=== PATIENT | male | born 1985 | race Caucasian/White ===

== ENCOUNTER 2016-10-02 15:30 | Emergency (ER) | payer BC ==
[~2016-10-02] VITALS: Ht 177.8 cm; Wt 102.0 kg
[2016-10-02 15:33] VITALS: TEMP 36.6; Ht 177.8 cm; Wt 102.0 kg
[2016-10-02] MEDS ORDERED: SULFAMETHOXAZOLE/TRIMETHOPRIM DS 800/160MG TAB PO STA (15:54)
--- NOTE | 2016-10-02 15:59 | EMERGENCY ROOM VISIT NOTE ---
History Report prepared by Charisibcaro: Cecilia Gillette Under the Supervision of: Dr. Opal Del Angel D.O. First contact with patient: 15:38 Chief Complaint: INFECTION Stated Complaint: LEFT KNEE INFECTED Nursing Triage Summary: pt to the ED with c/o went to PMD referred here for left knee red swelling over the past 5 days no injury History of Present Illness The patient is a 31 year old male who presents to the Emergency Room with complaints of persistent an infection on his left knee that became 4 days ago. He noticed an ingrown hair on his left knee on Tuesday and progressively got more painful and red. The patient states that site is sore too touch and hurt when his leg is bent. The patient denies any no fevers, chills, nausea, or vomiting. He also denies any other rashes as well as denies any history of MRSA. 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 Source of History: patient Onset: 4 days ago Position: knee (left) Timing: other (persistent) Associated Symptoms: No fevers, No chills, No nausea, No vomiting Review of Systems See HPI for pertinent positives & negatives. A total of 10 systems reviewed and were otherwise negative. Past Medical & Surgical Medical Problems: (1) Head injury Family History no pertinent family history stated. Social History Smoking Status: Never Smoker Marital Status: Housing Status: lives with family Occupation Status: employed Current/Historical Medications Scheduled Cephalexin Monohydrate (Keflex), 500 MG PO QID Sulfa/Trimethoprim (Bactrim Ds 800MG/160MG), 1 TAB PO BID Allergies Coded Allergies: No Known Allergies (Unverified , 03/08/14) Physical Exam Vital Signs Date Time Temp Pulse Resp B/P (MAP) Pulse Ox O2 Delivery O2 Flow Rate FiO2 10/02/16 16:15 81 16 130/77 99 10/02/16 15:33 36.6 78 16 136/84 99 Physical Exam GENERAL: alert, well appearing, well nourished, no distress, non-toxic EYE EXAM: normal conjunctiva, PERRL and EOM's grossly intact OROPHARYNX: no exudate, no erythema, lips, buccal mucosa, and tongue normal and mucous membranes are moist NECK: supple, no nuchal rigidity, no adenopathy, non-tender LUNGS: Clear to auscultation. Normal chest wall mechanics HEART: no murmurs, S1 normal and S2 normal ABDOMEN: abdomen soft, non-tender, normo-active bowel sounds, no masses, no rebound or guarding. BACK: Back is symmetrical on inspection and there is no deformity, no midline tenderness, no CVA tenderness. SKIN: no rashes and no bruising. Small scab on left knee surrounded by erythema and warm. UPPER EXTREMITIES: upper extremities are grossly normal. LOWER EXTREMITIES: No pitting edema. . ROM normal. no joint effusion NEURO EXAM: Normal sensorium, cranial nerves II-XII [grossly] intact, normal speech, no [gross] weakness of arms, no [gross] weakness of legs. [No drift. Finger to nose intact. Gross sensation intact.] Medical Decision & Procedures Medications Administered Medications (Trade) Dose Ordered Sig/Rosy Route Start Time Stop Time Status Last Admin Dose Admin Cephalexin Monohydrate (Keflex Cap) 500 mg NOW ONCE PO 10/02/16 16:00 10/02/16 16:01 DC 10/02/16 16:05 500 MG Trimethoprim/ Sulfamethoxazole (Septra Ds 800/ 160MG Tab) 1 tab NOW STAT PO 10/02/16 15:54 10/02/16 15:56 DC 10/02/16 16:05 1 TAB ED Course 1547: The patient was evaluated in room A10. A complete history and physical exam was performed. 1554: Trimethoprim/Sulfamethoxazole 1 tab PO. 1600:Keflex Cap 500 mg PO. 1630: Upon reevaluation, the patient is feeling better. I discussed the findings and the treatment plan with the patient. He verbalizes agreement and understanding. The patient was discharged home. Medical Decision Differential diagnosis: Etiologies such as cellulitis, abscess, MRSA infection, DVT, necrotizing fasciitis, dermatitis, drug eruption, as well as others were entertained.. Patient most likely with cellulitis, doubt septic arthritis given no joint effusion and full range of motion without pain. She only mildly tender over the involved area of the scab concerning sialitis. Area outlined with a marking pen as a precaution patient given strict instructions on close follow-up , use of antibiotics, symptoms to watch and return for. Patient with no prior history of cellulitis, patient not a diabetic, not immunocompromised, no history of MRSA. Symptoms have evolved over the last 5-6 days. She will be started on antibiotics, and will follow closely with family doctor as an outpatient. No other systemic symptoms to suggest bacteremia. Doubt sepsis. She well-appearing here bedside, ambulated with a steady gait. Vital signs stable. Medication Reconcilliation Current Medication List: was personally reviewed by me Blood Pressure Screening Patient's blood pressure: Normal blood pressure Blood pressure disposition: Did not require urgent referral Impression Primary Impression: Cellulitis Scribe Attestation The scribe's documentation has been prepared under my direction and personally reviewed by me in its entirety. I confirm that the note above accurately reflects all work, treatment, procedures, and medical decision making performed by me. Departure Information Dispostion Home / Self-Care Prescriptions Sulfa/Trimethoprim (Bactrim Ds 800MG/160MG) Tab 1 TAB PO BID, #14 TAB Prov: Opal Del Angel, DO 10/02/16 Cephalexin Monohydrate (KEFLEX) 500 Mg Cap 500 MG PO QID for 7 Days, #28 CAP Prov: Opal Del Angel, DO 10/02/16 Referrals No Doctor, Assigned (PCP) Forms HOME CARE DOCUMENTATION FORM, IMPORTANT VISIT INFORMATION, WORK / SCHOOL INSTRUCTIONS Patient Instructions My [facility] Additional Instructions Please take the antibiotics as prescribed until they are completed. Please follow-up with your family doctor and have them recheck the involved area. If the redness extends outside the lines that were drawn, please return the emergency room. If you have increasing pain, increasing swelling, are unable to bend your knee, develop fevers or chills, or any other new concerns, please return the emergency room. Please consider taking a probiotic while you are on antibiotics. Please drink plenty of water. Problem Qualifiers Primary Impression: Cellulitis Site of cellulitis: extremity Site of cellulitis of extremity: lower extremity Laterality: left Qualified Codes: L03.116 - Cellulitis of left lower limb
[2016-10-02] MEDS ORDERED: CEPHALEXIN MONOHYDRATE 250 MG CAP PO ONE (16:00)
[2016-10-02] MEDS ORDERED: CEPH500C2 PO (16:06)
[2016-10-02] MEDS ORDERED: SULF800T23 PO (16:06)
[2016-10-02 16:15] VITALS: BP 130/77; PULSE 81; O2SAT 99
== END 2016-10-02 16:15 | disposition home or self-care (01) ==
LOC: C.EDB 15:31 → C.EDA 16:15
DX: L03.116 Cellulitis of left lower limb (principal)

== ENCOUNTER 2016-10-04 14:51 | Emergency (ER) | payer BC ==
[~2016-10-04] VITALS: Ht 177.8 cm; Wt 103.7 kg
[~2016-10-04 14:51] MED LIST: CEPH500C2 PO; SULF800T23 PO
[2016-10-04 15:01] VITALS: Ht 177.8 cm; Wt 103.7 kg
[2016-10-04 15:57] LABS: BASO % 0.3 %; BASO ABS # 0.02 K/uL (0-0.2); COMPLETE YES; HEMATOCRIT 44.9 % (42-52); IG% 0.1 %; LYMPH % 27.6 %; LYMPH ABS # 2.03 K/uL (1.2-3.4); MEAN CELL VOLUME 89.6 fL (80-100); MEAN CORPUSCULAR HEMOGLOBIN 31.1 pg (25-34); MEAN CORPUSCULAR HGB CONC 34.7 g/dl (32-36); MEAN PLATELET VOLUME 10.2 fL (7.4-10.4); MONO % 11.8 %; NEUT % 59.2 %; PLATELET COUNT 275 K/uL (130-400); RED BLOOD COUNT 5.01 M/uL (4.7-6.1); WHITE BLOOD COUNT 7.35 K/uL (4.8-10.8)
[2016-10-04 16:10] LABS: CALCIUM 9.3 mg/dl (8.5-10.1); CREATININE 1.1 mg/dl (0.60-1.40); POTASSIUM 3.9 mmol/L (3.5-5.1)
[2016-10-04] MEDS ORDERED: VANCOMYCIN INJ 2,000 MG in SODIUM CHLORIDE 0.9% 500ML 500 ML IV SCH (16:57)
[2016-10-04] MEDS ORDERED: VANCOMYCIN INJ 2,000 MG in SODIUM CHLORIDE 0.9% 250ML 250 ML IV STA (16:57)
[2016-10-04] MEDS ORDERED: DOXYCYCLINE HYCLATE 100 MG CAP PO ONE (17:00)
[2016-10-04] MEDS ORDERED: LEVOFLOXACIN 250 MG TAB PO ONE (17:00)
[2016-10-04] MEDS ORDERED: DOXY100C PO (17:18)
[2016-10-04] MEDS ORDERED: LEVO1TAB35 PO (17:18)
[2016-10-04 20:20] VITALS: BP 121/75; PULSE 75; TEMP 36.7; O2SAT 98
--- NOTE | 2016-10-04 20:20 | EMERGENCY ROOM VISIT NOTE ---
History Report prepared by Yennifer: Bradley Lyon Under the Supervision of: Dr. Bobby Garcia D.O. First contact with patient: 15:20 Chief Complaint: WOUND INFECTION Stated Complaint: RASH RECHECK Nursing Triage Summary: patient was seen for cellulitis of the left lower leg on tuesday and given antiiotics. continues to get worse with swellong and pain History of Present Illness The patient is a 31 year old male who presents to the Emergency Room with complaints of worsening cellulitis on his left knee that began 1 week ago. He rates his pain in the area a 6/10 in severity. His pain worsens with palpation. He was seen in the ED two days ago and discharged with Keflex and Bactrim. He was told to return if it got worse. He states that the swelling to the area has improved, but it is spreading further past the dots. His cellulitis started as an ingrow hair in the area of his knee. He states that he has been swimming in pools and lakes frequently. He denies any fevers, cough, rhinorrhea, shortness of breath, chest pain, abdominal pain, nausea, vomiting, or diarrhea. No muscle aches or arthralgias. Source of History: patient Onset: 1 week ago Position: knee (left) Symptom Intensity: 6/10 Quality: burning Timing: worsening Modifying Factors (Worsening): other (Palpation) Associated Symptoms: No fevers, No chest pain, No SOB, No nausea, No vomiting, No abdominal pain, No diarrhea Review of Systems See HPI for pertinent positives & negatives. A total of 10 systems reviewed and were otherwise negative. Past Medical & Surgical Medical Problems: (1) Head injury Family History Patient reports no known family medical history. Social History Smoking Status: Former Smoker Smokeless Tobacco Use: No Drug Use: none Marital Status: Housing Status: lives with family Occupation Status: employed Current/Historical Medications Scheduled Cephalexin Monohydrate (Keflex), 500 MG PO QID Doxycycline Hyclate (Vibramycin), 100 MG PO BID Levofloxacin (Levaquin), 750 MG PO QD@08 Sulfa/Trimethoprim (Bactrim Ds 800MG/160MG), 1 TAB PO BID Allergies Coded Allergies: No Known Allergies (Unverified , 03/08/14) Physical Exam Vital Signs Date Time Temp Pulse Resp B/P (MAP) Pulse Ox O2 Delivery O2 Flow Rate FiO2 10/04/16 17:35 79 18 126/77 98 Room Air 10/04/16 15:01 37.0 78 20 125/81 97 Room Air Physical Exam GENERAL: alert, well appearing, well nourished, no distress, non-toxic, sitting up in bed. EYE EXAM: normal conjunctiva OROPHARYNX: no exudate, no erythema, lips, buccal mucosa, and tongue normal and mucous membranes are moist NECK: supple, no nuchal rigidity, no adenopathy, non-tender LUNGS: Clear to auscultation. Normal chest wall mechanics HEART: no murmurs, S1 normal and S2 normal ABDOMEN: abdomen soft, non-tender, normo-active bowel sounds, no masses, no rebound or guarding. UPPER EXTREMITIES: upper extremities are grossly normal. LOWER EXTREMITIES: Erythema 3 inches above the knee joint tracking distally around the knee to the edition. Warm and tender to palpation. No focal area of fluctuance. Erythema is just outside the second group of dots previously drawn on the area. No pain with axial loading. Full active ROM. NEURO EXAM: Normal sensorium, cranial nerves II-XII grossly intact, normal speech, no gross weakness of arms, no gross weakness of legs. Medical Decision & Procedures Laboratory Results 10/04/16 15:40 Red Blood Count 5.01, Mean Corpuscular Volume 89.6, Mean Corpuscular Hemoglobin 31.1, Mean Corpuscular Hemoglobin Concent 34.7, Mean Platelet Volume 10.2, Neutrophils (%) (Auto) 59.2, Lymphocytes (%) (Auto) 27.6, Monocytes (%) (Auto) 11.8, Eosinophils (%) (Auto) 1.0, Basophils (%) (Auto) 0.3, Neutrophils # (Auto ) 4.35, Lymphocytes # (Auto) 2.03, Monocytes # (Auto) 0.87, Eosinophils # (Auto ) 0.07, Basophils # (Auto) 0.02 10/04/16 15:40 Test 10/04/16 15:40 White Blood Count 7.35 K/uL (4.8-10.8) Red Blood Count 5.01 M/uL (4.7-6.1) Hemoglobin 15.6 g/dL (14.0-18.0) Hematocrit 44.9 % (42-52) Mean Corpuscular Volume 89.6 fL (80-100) Mean Corpuscular Hemoglobin 31.1 pg (25-34) Mean Corpuscular Hemoglobin Concent 34.7 g/dl (32-36) Platelet Count 275 K/uL (130-400) Mean Platelet Volume 10.2 fL (7.4-10.4) Neutrophils (%) (Auto) 59.2 % Lymphocytes (%) (Auto) 27.6 % Monocytes (%) (Auto) 11.8 % Eosinophils (%) (Auto) 1.0 % Basophils (%) (Auto) 0.3 % Neutrophils # (Auto) 4.35 K/uL (1.4-6.5) Lymphocytes # (Auto) 2.03 K/uL (1.2-3.4) Monocytes # (Auto) 0.87 K/uL (0.11-0.59) Eosinophils # (Auto) 0.07 K/uL (0-0.5) Basophils # (Auto) 0.02 K/uL (0-0.2) RDW Standard Deviation 40.7 fL (36.4-46.3) RDW Coefficient of Variation 12.4 % (11.5-14.5) Immature Granulocyte % (Auto) 0.1 % Immature Granulocyte # (Auto) 0.01 K/uL (0.00-0.02) Anion Gap 6.0 mmol/L (3-11) Est Creatinine Clear Calc Drug Dose 118.4 ml/min Estimated GFR () 103.9 Estimated GFR (Non- 89.6 BUN/Creatinine Ratio 12.0 (10-20) Calcium Level 9.3 mg/dl (8.5-10.1) Laboratory results per my review. Medications Administered Medications (Trade) Dose Ordered Sig/Rosy Route Start Time Stop Time Status Last Admin Dose Admin Levofloxacin (Levaquin Tab) 750 mg NOW ONCE PO 10/04/16 17:00 10/04/16 17:01 DC 10/04/16 18:01 750 MG Doxycycline Hyclate (Vibramycin Cap) 100 mg ONE ONCE PO 10/04/16 17:00 10/04/16 17:01 DC 10/04/16 18:01 100 MG Vancomycin HCl 2000 mg/Sodium Chloride 540 ml @ 200 mls/hr TODAY@1657 IV 10/04/16 16:57 10/04/16 23:59 10/04/16 17:33 200 MLS/HR ED Course ED COURSE: Vital signs were reviewed and showed nothing abnormal. The patients medical record was reviewed The above diagnostic studies were performed and reviewed. ED treatments and interventions as stated above. 1520: The patient was evaluated in room C2. A complete history and physical examination was performed. 1657: Ordered Vancomycin HCl 540 ml @ 200 mls/hr IV 1700: Ordered Doxycycline Hyclate 100 mg PO, Levofloxacin 750 mg PO 1725: Upon reevaluation, the patient is resting. I discussed my findings with the patient and he understands and agrees with the treatment plan. The patient remained stable while under my care. The patient will be discharged when he is finished receiving the IV antibiotics. Medical Decision Differential diagnosis includes etiologies such as cellulitis, abscess, MRSA infection, DVT, necrotizing fasciitis, dermatitis, drug eruption, as well as others were entertained. Patient is a 31-year-old male who presents the ER for erythema of his left lower extremity which is localized to around the knee. This started on Tuesday and has progressed. He notes that the swelling has actually improved but the erythema is worsening. Denies any recent tick bites. No myalgias or arthralgias. Skin is warm and tender and erythematous suggesting cellulitis. There is no signs of an infected joint. Able to axial load without difficulty. Vitals are stable. He has been on Bactrim and Keflex for 48 hours. With his failure of these medications I offered admission versus changing his medications. He preferred to try to do this as an outpatient. I felt this was reasonable as he has no comorbidities. Doxey will replace Bactrim. Keflex was stopped he was placed on Levaquin which does have pseudomonas coverage which is a possibility as he was swimming in lakes, streams in pools recently. Patient was given a dose of vancomycin and discharged follow-up with PCP. Discussed with Pt concerning signs and symptoms to watch out for. Pt was instructed to follow up with their PCP and discussed with the patient their option to return to the ED at anytime for persistent or worsening symptoms. The appropriate anticipatory guidance and out-patient management, including indications for return to the emergency department, were explained at length to the patient and understood. Medication Reconcilliation Current Medication List: was personally reviewed by me Blood Pressure Screening Patient's blood pressure: Normal blood pressure Blood pressure disposition: Did not require urgent referral Impression Primary Impression: Cellulitis Scribe Attestation The scribe's documentation has been prepared under my direction and personally reviewed by me in its entirety. I confirm that the note above accurately reflects all work, treatment, procedures, and medical decision making performed by me. Departure Information Dispostion Home / Self-Care Prescriptions Levofloxacin (Levaquin) 750 Mg Tab 750 MG PO QD@08, #9 TAB Prov: Bobby Garcia, DO 10/04/16 Doxycycline Hyclate (VIBRAMYCIN) 100 Mg Cap 100 MG PO BID for 10 Days, CAP Prov: Bobby Garcia, DO 10/04/16 Referrals Rafi Banks M.D. (PCP) Forms HOME CARE DOCUMENTATION FORM, IMPORTANT VISIT INFORMATION, WORK / SCHOOL INSTRUCTIONS Patient Instructions Cellulitis - [facility], [facility] Additional Instructions Please follow up with your primary care doctor or if you are a student, [facility] with in the next 24 hours. Any worsening of your symptoms, please return to the ED immediately. This includes any fevers greater than 100.4, worsening pain, increase spreading of the redness, pain within her knee, pain within her ankle, or any other concerning signs or symptoms from your standpoint. Please stop taking Bactrim and Keflex. Please start taking doxycycline and Levaquin as prescribed. Redness will worsen over the next 24 hours. Following 24 hours it should not get any worse and by 48 hours it should be improving. If this does not occur you need to return to the ER for admission. Problem Qualifiers Primary Impression: Cellulitis Site of cellulitis: unspecified site Qualified Codes: L03.90 - Cellulitis, unspecified
== END 2016-10-04 20:20 | disposition home or self-care (01) ==
LOC: C.EDB 14:52 → C.EDC 20:20
DX: L03.116 Cellulitis of left lower limb (principal); Z87.828 Personal history of other (healed) physical injury and trauma; Z87.891 Personal history of nicotine dependence

== ENCOUNTER 2017-04-11 11:28 | Day surgery (SDC) | payer BC ==
[2017-03-21 08:08] VITALS: BMI 33.0
--- NOTE | 2017-03-21 08:36 | PAT Medication Instructions ---
Service Date Mar 21, 2017. Current Home Medication List Acetaminophen (Tylenol), 2 TAB PO UD PRN for prn Ibuprofen Tab (Motrin), 800 MG PO UD PRN for Pain [amino acid supp], Unknown Dose Medication Instructions For Your Scheduled Surgery - Check with surgeon for instructions: Ibuprofen Tab (Motrin), 800 MG PO UD PRN for Pain - Hold the following medications the morning of surgery: [amino acid supp], Unknown Dose - Take the following medications the morning of surgery with a sip of water: Acetaminophen (Tylenol), 2 TAB PO UD PRN for prn (okay to take up to 4 hours prior to surgery if needed) - Take the following medications as scheduled the night before surgery: Acetaminophen (Tylenol), 2 TAB PO UD PRN for prn (if needed) If you have any questions please call us at [phone] or [phone] or [phone]
--- NOTE | 2017-03-21 09:09 | DIAGNOSTIC IMAGING REPORT ---
TWO VIEW CHEST CLINICAL HISTORY: Preoperative examination. FINDINGS: PA and lateral chest radiographs are obtained. No prior studies are available for comparison at the time of dictation. The cardiomediastinal silhouette is unremarkable. The lungs and pleural spaces are clear. There is no pneumothorax. The bony thorax appears intact. IMPRESSION: No active disease in the chest. Electronically signed by: Kendrick Gonzalez M.D. 03/21/2017 9:07 AM Dictated Date/Time: 03/21/2017 9:06 AM
[2017-03-21 10:20] LABS: BASO % 0.5 %; BASO ABS # 0.03 K/uL (0-0.2); EOS % 2.4 %; EOS ABS # 0.16 K/uL (0-0.5); HEMATOCRIT 43.5 % (42-52); HEMOGLOBIN 15.4 g/dL (14.0-18.0); IG# 0.01 K/uL (0.00-0.02); LYMPH % 45.3 %; LYMPH ABS # 3.02 K/uL (1.2-3.4); MEAN CORPUSCULAR HEMOGLOBIN 31.5 pg (25-34); MEAN CORPUSCULAR HGB CONC 35.4 g/dl (32-36); MEAN PLATELET VOLUME 10.8 fL (7.4-10.4); MONO % 13.4 %; MONO ABS # 0.89 K/uL (0.11-0.59); NEUT % 38.2 %; NEUT ABS # 2.55 K/uL (1.4-6.5); PLATELET COUNT 253 K/uL (130-400); RED CELL DISTRIBUTION WIDTH CV 12.6 % (11.5-14.5); RED CELL DISTRIBUTION WIDTH SD 40.3 fL (36.4-46.3); WHITE BLOOD COUNT 6.66 K/uL (4.8-10.8)
[2017-03-21 10:29] LABS: CALCIUM 10.1 mg/dl (8.5-10.1); CREATININE 0.98 mg/dl (0.60-1.40); POTASSIUM 3.7 mmol/L (3.5-5.1)
[~2017-04-11] VITALS: Ht 177.8 cm; Wt 104.4 kg
[~2017-04-11 11:28] MED LIST changes: +ACET-1256 PO; +AMINO ACID; +CEFAZOLIN 2000MG IV PUSH 15 ML IV SCH; -CEPH500C2 PO; +IBUP-1451 PO; +LACTATED RINGER'S 1000ML 1,000 ML IV SCH; -SULF800T23 PO
[2017-04-11 11:50] VITALS: BP 141/85; PULSE 75; TEMP 36.5; O2SAT 99; Ht 177.8 cm; Wt 104.4 kg
[2017-04-11] MEDS ORDERED: ATROPINE SULFATE 0.1 MG/ML 5ML SYR IV PRN (12:30)
[2017-04-11] MEDS ORDERED: FENTANYL CITRATE INJ 50 MCG/1 ML 2 ML VIAL IV PRN (12:30)
[2017-04-11] MEDS ORDERED: ONDANSETRON INJ 2 MG/ML 2 ML VIAL IV PRN (12:30)
[2017-04-11] MEDS ORDERED: EpHEDrine SULFATE INJ 50 MG/ML AMP IV PRN (12:30)
[2017-04-11] MEDS ORDERED: FENTANYL CITRATE INJ 50 MCG/1 ML 2 ML VIAL ONE ×2 (13:14→14:02)
[2017-04-11] MEDS ORDERED: MIDAZOLAM HCL 1 MG/ML 2ML VIAL ONE (13:14)
[2017-04-11] MEDS ORDERED: SCOPOLAMINE 1.5 MG TDSY TD ONE ×2 (13:19→13:30)
--- NOTE | 2017-04-11 13:19 | History & Physical Bridge Note ---
H&P Re-Evaluation Bridge Note: I have examined the patient, reviewed the History & Physical and in the interval since the performance of the History & Physical I have noted the following changes of clinical significance: No changes noted
--- NOTE | 2017-04-11 13:21 | History and Physical ---
History & Physical Date Apr 11, 2017. Chief Complaint Back and right leg pain History of Present Illness The patient is a 31 year old male with complaints of back and right leg pain Past Medical/Surgical History Medical Problems: (1) Head injury Additional History Hepatic Disease: No Endocrine Disorder: No Kidney Disease: No Hypertension: No Heart Disease: No Bleeding Tendencies: No Infectious Diseases: No Allergies Coded Allergies: No Known Allergies (Unverified , 03/21/17) Home Medications Scheduled PRN Acetaminophen (Tylenol), 2 TAB PO UD PRN for prn Ibuprofen Tab (Motrin), 800 MG PO UD PRN for Pain Miscellaneous Medications [amino acid supp], Unknown Dose Physical Examination Skin: warm/dry, no rash Eyes: normal inspection, EOMI, sclerae normal ENT: normal ENT inspection, pharynx normal Head: normocephalic, atraumatic Neck: supple, no adenopathy, trachea midline Respiratory/Chest: lungs clear, normal breath sounds, no respiratory distress Cardiovascular: regular rate, rhythm, no edema, no murmur Abdomen / GI: normal bowel sounds, non tender Back: normal inspection Extremities: normal inspection, normal range of motion Neurologic/Psych: no motor/sensory deficits, alert, normal reflexes, oriented x 3 Diagnosis Herniated nucleus pulposus L5-S1 Plan of Treatment Microdiscectomy L5-S1 on the right
[2017-04-11] MEDS ORDERED: BACITRACIN 50000 UNIT VIAL ONE (13:29)
[2017-04-11] MEDS ORDERED: BUPIVACAINE/EPINEPHRINE 0.5% MPF 1:200,000 30 ML VIAL ONE (13:29)
[2017-04-11] MEDS ORDERED: HYDROmorphone INJ 2 MG/ML SYR/VIAL ONE (14:02)
[2017-04-11] MEDS ORDERED: RANITIDINE HCL 25 MG/ML INJ ONE (14:10)
[2017-04-11] MEDS ORDERED: LIDOCAINE HCL 2% 2 ML VIAL (20MG/ML) ONE (14:10)
[2017-04-11] MEDS ORDERED: METOCLOPRAMIDE HCL INJ 5 MG/ML 2 ML VIAL ONE (14:10)
[2017-04-11] MEDS ORDERED: PROPOFOL IV EMULSION 10 MG/ML 20 ML VIAL IV ONE (14:10)
[2017-04-11] MEDS ORDERED: ONDANSETRON INJ 2 MG/ML 2 ML VIAL ONE (14:10)
[2017-04-11] MEDS ORDERED: DEXAMETHASONE SOD INJ 4 MG/ML VIAL ONE (14:10)
[2017-04-11] MEDS ORDERED: ESMOLOL HCL 10 MG/ML 10 ML VIAL ONE (14:10)
[2017-04-11] MEDS ORDERED: LARYING-O-JET KIT (LTA) ONE (14:13)
[2017-04-11] MEDS ORDERED: FLOSEAL HEMOSTATIC MATRIX 5ML TOP ONE (14:21)
--- NOTE | 2017-04-11 14:23 | [facility] Operative Report ---
Operative Report Operative Date Apr 11, 2017. Pre-Operative Diagnosis Herniated Nucleus Pulposus L5-S1 Post-Operative Diagnosis Herniated Nucleus Pulposus L5-S1 Procedure(s) Performed Right L5-S1 Microdiscectomy Surgeon [address] Riddle [employer] Adviser Surgeon(s) ISIDORO Bush Estimated Blood Loss 5 ml Findings Herniated nucleus pulposus L5-S1 on the right with severe neural compression Specimens A. Disc Tissue Right L5-S1 Anesthesia Type General Description of Procedure Patient was met with preoperatively case discussed all questions addressed. After informed consent obtained patient was taken to the operative suite underwent intubation and placed in a prone position on the Woodrow table on top of the Broderick frame. All bony prominences were well-padded eyes inspected to ensure no external pressure placed upon them. This point the lumbar spine was prepped and draped in the normal sterile fashion. With the assistance of fluoroscopy identified the 51 disc space. Sharp dissection with the assistance of Bovie cautery was performed onto an exposing the interlaminar space at L5-S1 the right. A self retaining retractors placed. Small laminotomy was created. Then resected the lateral portion of the ligamentum flavum to expose a markedly severely compressed traversing S1 nerve root. I was able to mobilize this medially and remove several massive fragment of disc material. There is and copious irrigated and explored to ensure there was no retained fragments. Incision was then closed with 1 Vicryl in the fascia 2-0 Vicryl subcutaneously and 4-0 Monocryl for final skin closure. Steri-Strips dressings placed. Patient awakened taken PACU stable condition. Please note Heidy Brown was present at the entire procedure involved in patient positioning complex portions of the surgery and final skin closure. I attest to the content of the Intraoperative Record and any orders documented therein. Any exceptions are noted below.
[2017-04-11] MEDS ORDERED: OXYC-57 PO (14:24)
--- NOTE | 2017-04-11 14:24 | Discharge Instructions ---
Discharge Instructions Date of Service Apr 11, 2017. Admission Reason for Admission: Lumbar Spinal Stenosis L5-S1 Discharge Discharge Diagnosis / Problem: herniated disk Discharge Goals Goal(s): Decrease discomfort Activity Recommendations Activity Limitations: per Instructions/Follow-up section . Instructions / Follow-Up Instructions / Follow-Up ACTIVITY RECOMMENDATIONS: SELF CARE INSTRUCTIONS AFTER A LAMINECTOMY 1. No prolonged sitting (less than 30 minutes for the first 3 weeks after surgery). 2. No bending, lifting more than 5 pounds, or twisting (roll like a log when turning in bed). 3. You may shower 3 days after surgery if no drainage from wound. Thoroughly dry wound. Do not soak in the tub. 4. Please walk as much as you can for exercise. Gradually increase the distance that you walk as your endurance increases. 5. You may drive in 7-10 days if you are comfortable and no longer requiring pain medications. SPECIAL CARE INSTRUCTIONS: VERY IMPORTANT TO READ AND REVIEW A. Your surgical incision has been closed with a cosmetic suture under the skin that will dissolve in about 6 weeks. In 14 days, you can use a pair of clean scissors and cut the suture that is left outside of the skin at the ends of your incision. B. Complications are uncommon, but please contact us if you have any signs or symptoms of: 1. wound infection (fever higher than 102.5 degrees F, redness, separation of wound, drainage, or increasing pain from the incision) 2. blood clots in legs (pain, swelling, redness and warmth in legs) 3. urinary tract infection (fever higher than 102.5 degrees, burning upon urination or increased frequency of urination) 4. nerve problems (inability to walk on your toes or heels, numbness, loss of bowel or bladder control) 5. any other symptoms that concern you. C. Please call the office at if you have any concerns or questions about your operation or recovery. MANAGING PAIN AFTER SPINAL SURGERY 1. Narcotic medication is intended for short-term use and will be provided for surgical pain. Surgical pain usually lasts for a period of 4-6 weeks. Narcotic medication includes Percocet, Vicodin, Darvocet, Tylenol #3 or Lortab. 2. Longer-term pain is more appropriately treated with non-narcotic medication such as Tylenol ES. 3. Muscle spasm is not appropriately treated with narcotics. Muscle relaxers such as Soma, Flexeril or Skelaxin can be used along with Tylenol ES. 4. Remember that we all live with some "aches and pains". This is not unusual or uncommon after an injury or as we get older. 5. We will provide appropriate medication within the normal guidelines of their prescribed use. We will also be very cautious and aware of potential abuse and extended duration of patients' medication needs. 6. Please allow 2-3 days to process refills. Prescriptions will not be mailed but must be picked up at the office. FOLLOW UP VISIT: Keep your scheduled follow-up appointment. Any questions, please call the office at . Current Hospital Diet Patient's current hospital diet: Discharge Diet Recommended Diet: Regular Diet Procedures Procedures Performed: Right L5-S1 Microdiscectomy Pending Studies Studies pending at discharge: no Medical Emergencies . Who to Call and When: Medical Emergencies: If at any time you feel your situation is an emergency, please call 911 immediately. . Non-Emergent Contact Non-Emergency issues call your: Primary Care Provider . "Provider Documentation" section prepared by Duran Riddle. . VTE Core Measure Inpt VTE Proph given/why not?: Jerome Allen, SCD's
--- NOTE | 2017-04-11 14:44 | DIAGNOSTIC IMAGING REPORT ---
LUMBAR SPINE, INTRAOPERATIVE FLUOROSCOPY HISTORY: L5-S1 microdiscectomy. FLUOROSCOPY TIME: 4 seconds. FINDINGS: Intraoperative fluoroscopy was provided for the lumbar spine. A single fluoroscopic spot image of the lumbar spine demonstrates retractors posterior to the L5-S1 disc space level. IMPRESSION: Fluoroscopy provided for a L5-S1 microdiscectomy. Electronically signed by: Sterling Diez M.D. 04/11/2017 2:42 PM Dictated Date/Time: 04/11/2017 2:42 PM
--- NOTE | 2017-04-11 15:11 | Anesthesiology Progress Note ---
Anesthesia Post Op Note Date & Time Apr 11, 2017 at 15:11 Vital Signs Pain Intensity: 1 Vital Signs Past 12 Hours Date Time Temp Pulse Resp B/P (MAP) Pulse Ox O2 Delivery O2 Flow Rate FiO2 04/11/17 15:05 36.4 53 14 121/78 98 Room Air 04/11/17 14:55 56 14 124/78 96 Room Air 04/11/17 14:45 61 14 133/79 96 Room Air 04/11/17 14:35 36.2 71 14 127/81 99 Oxymask 5 04/11/17 11:50 36.5 75 16 141/85 99 Room Air Notes Mental Status: alert / awake / arousable, participated in evaluation Pt Amnestic to Procedure: Yes Nausea / Vomiting: adequately controlled Pain: adequately controlled Airway Patency, RR, SpO2: stable & adequate BP & HR: stable & adequate Hydration State: stable & adequate Anesthetic Complications: no major complications apparent
[2017-04-11 15:20] VITALS: BP 118/85; PULSE 60; TEMP 36.7; O2SAT 99
[2017-04-11 15:50] VITALS: BP 131/80; PULSE 74; TEMP 36.6; O2SAT 99
[2017-04-11] MEDS ORDERED: NURSING VERBAL MED ORDER ONE (16:00)
[2017-04-11] MEDS ORDERED: OXYCODONE/ACETAMINOPHEN 5-325 TAB PO PRN (16:15)
[2017-04-11 16:20] VITALS: BP 121/66; PULSE 68; TEMP 36.7; O2SAT 96
[2017-04-11 16:50] VITALS: BP 125/69; PULSE 63; TEMP 36.7; O2SAT 96
[2017-04-11 17:20] VITALS: BP 116/72; PULSE 65; TEMP 37; O2SAT 95
== END 2017-04-11 17:45 | disposition home or self-care (01) ==
LOC: C.ACU 11:28
PROVIDERS: ATTEND Orthopaedic Surgery Orthopaedic Surgery of the Spine
DX: M51.27 Other intervertebral disc displacement, lumbosacral region (principal); M48.061 Spinal stenosis, lumbar region without neurogenic claudication